=== PATIENT | male | born 1935 | race Caucasian/White ===

== ENCOUNTER → 2017-03-02 | Day surgery (SDC) | payer MEDICARE ==
[~2017-03-02] MED LIST: CELEXA40 MG PO; ZESTORETIC 10-1 EACH PO; ZOCOR20 MG PO
[2017-03-02 06:38] LABS: HEMATOCRIT 41.4 % (42.0-52.0); HEMOGLOBIN 14.1 gm/dL (14.0-18.0); MCH 31.9 pg (26.0-34.0); MCHC 33.9 g/dL (28.0-37.0); RBC 4.4 mil/uL (4.50-6.00); RDW-CV 12.9 % (10.5-14.5); WBC 5.9 thou/uL (4.0-11.0)
[2017-03-02 06:49] LABS: CALCIUM 9.1 mg/dL (8.5-10.1)
[2017-03-02 06:59] LABS: ALBUMIN 3.8 g/dL (3.4-5.0); TOTAL BILIRUBIN 0.4 mg/dL (<0.1-1.0); TOTAL PROTEIN 6.8 g/dL (6.4-8.2)
--- NOTE | 2017-03-02 15:44 | EKG ---
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
--- NOTE | 2017-03-03 10:31 | PROC ---
[facility] [address] [place] [address] [address] PROCEDURE REPORT Name: JUAN FRANCISCO CHAPA Room: [facility]#: [id number] Admission: 03/02/17 Attend Phys: Arthur Fortune Discharge: Date of : 37 Report #: [id number] THIS REPORT FOR: //name// CC: Juan Francisco Fortune DATE OF SERVICE: 03/02/2017 PREOPERATIVE DIAGNOSIS: Right lower quadrant abdominal mass, 3 cm. POSTOPERATIVE DIAGNOSIS: Right lower quadrant abdominal mass, 3 cm. OPERATION: Excision of right lower quadrant abdominal mass, 3 cm. SURGEON: Arthur Fortune MD. ANESTHESIA: General. ESTIMATED BLOOD LOSS: Minimal. SPECIMENS: Abdominal mass. DESCRIPTION OF PROCEDURE: After informed consent was obtained, the patient was brought to the operating room and placed supine. SCDs were placed and working, preoperative Ancef was administered, general anesthesia was induced. The abdomen was prepped and draped in the usual sterile fashion. A 3-cm elliptical incision was made around the mass in the right lower quadrant. Cautery dissection was made down through the subcutaneous tissue. 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 This was all completely dissected around and excised. The skin was then closed in 2 layers with interrupted 3-0 Vicryl for the deep layer and 3-0 PDS in interrupted fashion for the skin. Sterile dressings were applied. COMPLICATIONS: None. DISPOSITION: The patient was taken to recovery in satisfactory condition. <ELECTRONICALLY SIGNED> By: Arthur Fortune MD 03/03/17 1031 0810 0822Arthur Fortune MD /nt
--- NOTE | 2017-03-03 12:30 | S ---
[facility] [address] [place] [address] SURGICAL PATH RPT PROCEDURE Name: LACIE RICCI Room: [facility]#: [id number] Admission: 03/02/17 Date of : 37 Discharge: Report #: [id number] Path Case #: [id number] PATHOLOGY REPORT COLLECTION DATE: 03/02/2017 RECEIVED DATE: 03/02/2017 SUBMITTING PHYS: Dr. Arthur Fortune OTHER PHYS: Dr. Lacie Montalvo SPECIMEN(S) RECEIVED: A.Abdominal mass * * * * * * * * * * * * FINAL DIAGNOSIS: Skin with underlying fibroadipose tissue "abdominal mass": - Acute ulceration with dermal acute and chronic inflammation with foreign body giant cell reaction and findings of sinus tract with surrounding fibrosis. - The foreign material appears to be suture-like with extensive giant cell reaction. - There is no evidence of atypia or malignancy. (SHA:[facility]; 03/03/2017) PATHOLOGIST: Sreekanth Gaines M.D. REPORT ELECTRONICALLY SIGNED BY: Sreekanth Gaines M.D. DATE/TIME: 03/03/2017 12:29 * * * * * * * * * * * * GROSS PATHOLOGY: The specimen is received in formalin, labeled "Lacie Ricci, abdominal mass," and consists of three segments of fibroadipose tissue with attached synthetic material grossly resembling a lap sponge/gauze. One segment is partially covered by an ellipse of pink-major skin measuring 4.3 x 1.8 x 0.6 cm. The epidermal surface displays a major-brown raised lesion that measures 0.6 x 0.5 x 0.5 cm. Sectioning this segment reveals a tract with possible abscess formation. The remainder of the segments show lobulated yellow-major cut surfaces. 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 ([facility]; 03/02/2017) CLINICAL HISTORY: Abdominal wall mass INITIAL CPT CODE(S): [address] [place] [address] SURGICAL PATH RPT PROCEDURE Name: LACIE RICCI Room: [facility].#: [id number] Admission: 03/02/17 Date of : 37 Discharge: Report #: [id number] Path Case #: [id number] Professional services performed by [facility] at [facility], [address] [place], [place] [address] [address]. Technical services performed by [employer] at [address] [place] [address], [address], [place] [address]. [facility] [address] [place] [address] PHONE: [phone] DIRECTOR: Cl Mcgregor M.D. * * * END OF REPORT * * *
== END | disposition home or self-care (01) ==
LOC: M.SUR 05:55
PROVIDERS: Surgery
DX: M79.5 Residual foreign body in soft tissue (principal); R19.03 Right lower quadrant abdominal swelling, mass and lump